=== PATIENT | female | born 1960 | race Caucasian/White ===

== ENCOUNTER → 2016-08-20 | Outpatient (CLI) | payer OTHER ==
[~2016-08-20] MED LIST: ABILIFY2 MG PO; CALCIUM CARBONATE; CLARINEX 5MG5 MG PO; CYMBALTA60 MG PO; LAMICTAL150 MG PO; LEVOXYL0.075 MG PO; LEXAPRO 10MG10 MG PO; LORTAB 5/500 501 TAB PO; MALOXICAN; MAREPA1200 MG PO; NAPROSYN500 MG PO; SYNTHROID0.025 MG PO; VIIBRYD20 MG PO; [UNRECOGNIZED DRUG - OTHER]
== END ==
LOC: BHSO 09:58
DX: F31.81 Bipolar II disorder (principal)

== ENCOUNTER → 2016-11-12 | Outpatient (CLI) | payer OTHER | LOC: BHSO 09:50 | DX: F31.74 Bipolar disorder, in full remission, most recent episode manic (principal) ==

== ENCOUNTER → 2017-08-12 | Outpatient (CLI) | payer OTHER | LOC: BHSO 14:48 | DX: F41.1 Generalized anxiety disorder (principal) | CPT/HCPCS: G0463 ==

== ENCOUNTER → 2017-10-13 | Outpatient (CLI) | payer OTHER | LOC: MC.RAD 09-14 07:00 | DX: Z12.31 Encounter for screening mammogram for malignant neoplasm of breast (principal) ==

== ENCOUNTER → 2017-11-11 | Outpatient (CLI) | payer OTHER | LOC: BHSO 14:02 | DX: F31.81 Bipolar II disorder (principal) | CPT/HCPCS: G0463 ==

== ENCOUNTER → 2018-09-05 | Outpatient (CLI) | payer OTHER | LOC: BHSO 13:57 | DX: F31.81 Bipolar II disorder (principal) | CPT/HCPCS: G0463 ==

== ENCOUNTER → 2019-03-02 | Outpatient (CLI) | payer OTHER | LOC: BHSO 14:13 | DX: F33.42 Major depressive disorder, recurrent, in full remission (principal) | CPT/HCPCS: G0463 ==

== ENCOUNTER → 2019-08-31 | Outpatient (CLI) | payer OTHER | LOC: BHSO 10:19 | DX: F31.81 Bipolar II disorder (principal) | CPT/HCPCS: G0463 ==

== ENCOUNTER → 2020-03-28 | Outpatient (CLI) | payer OTHER | LOC: BHSO 10:02 | DX: F31.81 Bipolar II disorder (principal) | CPT/HCPCS: G0463 ==

== ENCOUNTER → 2020-10-03 | Outpatient (CLI) | payer OTHER | LOC: MC.RAD 11:30 | DX: Z12.31 Encounter for screening mammogram for malignant neoplasm of breast (principal) ==

== ENCOUNTER → 2020-10-10 | Outpatient (CLI) | payer OTHER | LOC: MC.RAD 07:45 | DX: N63.20 Unspecified lump in the left breast, unspecified quadrant (principal) ==

== ENCOUNTER → 2021-04-17 | Outpatient (CLI) | payer OTHER | LOC: MC.RAD 11:00 | DX: N63.20 Unspecified lump in the left breast, unspecified quadrant (principal) ==

== ENCOUNTER → 2021-12-15 | Outpatient (CLI) | payer OTHER | LOC: MC.RAD 10-16 14:15 | DX: Z12.31 Encounter for screening mammogram for malignant neoplasm of breast (principal) ==

== ENCOUNTER 2022-01-14 19:07 | Emergency (ER) | payer SELFPAY ==
[~2022-01-14] VITALS: Ht 177.8 cm; Wt 97.7 kg
[2022-01-14 19:13] VITALS: TEMP 98
[2022-01-14] MEDS ORDERED: SYNTHROID0.125 MG/T PO (19:50)
[2022-01-14] MEDS ORDERED: LAMICTAL200 MG PO (19:50)
[2022-01-14] MEDS ORDERED: LAMICTAL 100MG100 MG PO (19:50)
[2022-01-14 19:52] LABS: BASO # 0.1 K/mm3 (0.0-0.2); BASO % 0.7 % (0.0-2.0); EOS # 0.1 K/mm3 (0.0-0.7); EOS % 1.6 % (0.0-4.0); GRAN # 6.1 K/mm3 (1.4-6.5); GRAN % 69.5 % (42.2-75.2); HEMATOCRIT 46.5 % (37.0-47.0); HEMOGLOBIN 15.5 g/dl (12.5-16.0); LYMPH # 1.8 K/mm3 (1.2-3.4); LYMPH % 20.5 % (20.0-51.0); MEAN CELL VOLUME 84 fl (80.0-100.0); MEAN CORPUSCULAR HEMOGLOBIN 28 pg (27-31); MEAN CORPUSCULAR HGB CONC 33 g/dl (33.0-37.0); MEAN PLATELET VOLUME 10.7 fl (7.4-10.4); MONO # 0.7 K/mm3 (0.1-0.6); MONO % 7.4 % (1.7-9.3); PLATELET COUNT 229 K/mm3 (130-400); RED BLOOD COUNT 5.54 M/mm3 (4.10-5.30); REDCELL DISTRIBUTION WIDTH-CV 12.6 % (11.5-14.5)
[2022-01-14 19:59] LABS: INR 1.1 (0.8-3.0); PROTHROMBIN TIME 12.1 SECONDS (9.7-12.8)
[2022-01-14 20:12] LABS: ALANINE AMINOTRANSFERASE 39 U/L (0-55); ALKALINE PHOSPHATASE 173 U/L (40-150); ANION GAP 13 mmol/L (7-16); AST,SGOT 25 U/L (5-34); BILIRUBIN,TOTAL 1.1 mg/dL (0.2-1.2); BLOOD UREA NITROGEN 14 mg/dL (10-20); CALCIUM 9.8 mg/dL (8.4-10.2); CARBON DIOXIDE 21 mmol/L (23-31); CHLORIDE 106 mmol/L (98-107); CREATININE, serum 0.78 mg/dL (0.57-1.11); GLUCOSE 105 mg/dL (70-99); SODIUM 140 mmol/L (136-145); TOTAL PROTEIN 7.4 gm/dL (6.2-8.1)
[2022-01-14 20:19] LABS: TROPONIN-I < 0.010 ng/mL (0.00-0.033)
[2022-01-14 21:24] VITALS: BP 138/70; PULSE 76
== END 2022-01-14 21:24 | disposition home or self-care (01) ==
LOC: COL.ER 19:07
PROVIDERS: Nurse Practitioner Primary Care
DX: M79.10 Myalgia, unspecified site (principal); R29.898 Other symptoms and signs involving the musculoskeletal system; Z28.310 Unvaccinated for COVID-19

== ENCOUNTER 2022-03-02 15:05 | Outpatient (RCR) | payer OTHER ==
[~2022-03-02 15:05] MED LIST changes: +LAMICTAL 100MG100 MG PO; +LAMICTAL200 MG PO; +SYNTHROID0.125 MG/T PO
== END 2022-03-08 | disposition home or self-care (01) ==
LOC: MKS.ESL.PT
DX: M25.562 Pain in left knee (principal); R20.0 Anesthesia of skin

== ENCOUNTER 2022-03-25 13:45 | Outpatient (RCR) | payer OTHER | END 2022-04-08 | disposition home or self-care (01) | LOC: MKS.ESL.PT | DX: M25.552 Pain in left hip (principal); R20.0 Anesthesia of skin ==